=== PATIENT | female | born 1955 | race Caucasian/White ===

== ENCOUNTER 2023-12-02 16:15 | Emergency (ER) | payer MEDICARE, BC ==
[~2023-12-02] VITALS: Ht 154.9 cm; Wt 50.0 kg
[2023-12-02 17:59] VITALS: BP 123/58; PULSE 65; RESP 15; TEMP 98.5; O2SAT 99
== END 2023-12-02 18:00 | disposition home or self-care (01) ==
LOC: ER 16:16
DX: S67.191A Crushing injury of left index finger, initial encounter (principal); S67.193A Crushing injury of left middle finger, initial encounter; S67.195A Crushing injury of left ring finger, initial encounter; W23.0XXA Caught, crushed, jammed, or pinched between moving objects, initial encounter; Y93.89 Activity, other specified; Y92.89 Other specified places as the place of occurrence of the external cause; Y99.8 Other external cause status
CPT/HCPCS: 73130; 99283